=== PATIENT | male | born 1990 | race Caucasian/White ===

== ENCOUNTER 2017-02-15 18:35 | Emergency (ER) | payer SELFPAY ==
--- NOTE | 2017-02-23 19:06 | ER ---
ADMIT: 02/15/2017 RM/LOC: ER [facility] MR#: [id number] [address] [id number] SHIKHA QUINN [facility] [place] [address] Emergency Room Report SEX: M AGE: 26 : 1990 DATE: 02/15/2017 SUBJECTIVE: The patient is a 26-year-old male, who came in with a chief complaint of cough, runny nose, fever, and chills for the last 2 days. The patient states vaccination is up to date and he has sick contact, and today he went to work, he did not go to work for the last 2 days for the same problem, and at work he was sent to the ER for clearance. The patient states he took Tylenol at home. PHYSICAL EXAMINATION: GENERAL: The patient is afebrile in the ER, in no obvious pain or distress. HEAD AND NECK: Positive for erythematous oropharynx without any exudate. No lymphadenopathy in the anterior chain. LUNGS: Clear. HEART: Normal S1, S2. ABDOMEN: Soft. SKIN: No skin rashes. EXTREMITIES: No lower extremity swelling. IMPRESSION: The rest of the physical exam is noncontributory. The patient is stable, and with the diagnosis of upper respiratory infection, was discharged to home to be followed up with the primary doctor, using Tylenol or Motrin if he develops pain. Lai Johnson MD/ og JOB #: [id number] CC: Manolo Zarate MD, Attending Physician Yao Cardoso MD, Family Physician
== END 2017-02-15 19:30 | disposition home or self-care (01) ==
LOC: ER 18:35
DX: J06.9 Acute upper respiratory infection, unspecified (principal); F17.210 Nicotine dependence, cigarettes, uncomplicated; Z79.899 Other long term (current) drug therapy